=== PATIENT | female | born 1985 | race Caucasian/White ===

== ENCOUNTER 2021-11-20 19:13 | Emergency (ER) | payer OTHER ==
[~2021-11-20] VITALS: Ht 170.2 cm; Wt 68.0 kg
== END 2021-11-20 21:01 | disposition home or self-care (01) ==
LOC: ER 19:13
DX: S61.216A Laceration without foreign body of right little finger without damage to nail, initial encounter (principal); W25.XXXA Contact with sharp glass, initial encounter; Y93.G1 Activity, food preparation and clean up; Y92.010 Kitchen of single-family (private) house as the place of occurrence of the external cause; Y99.9 Unspecified external cause status

== ENCOUNTER 2021-11-28 13:32 | Emergency (ER) | payer OTHER ==
[~2021-11-28] VITALS: Ht 167.6 cm; Wt 70.3 kg
== END 2021-11-28 15:47 | disposition home or self-care (01) ==
LOC: ER 13:32
DX: Z48.02 Encounter for removal of sutures (principal)